=== PATIENT | female | born 1960 | race Caucasian/White ===

== ENCOUNTER → 2016-09-26 | Outpatient (CLI) | payer OTHER ==
[~2016-09-26] MED LIST: ALLEGRA 180MG180 MG PO; ASTELIN NASAL S34 ML; ATARAX 25MG25 MG/TAB PO; BIOFREEZE 0.2%-1 GE1 TOP; CENTRUM SILVER1 CTB PO; CENTRUM SILVER1 TAB; DOS PO; EPIPEN 2-PAK1 MG/ML IM; FLONASE NASAL S16 GM NS; GLUCOPHAGE1000 MG PO; GLUCOSAMINE & C1 CA1 PO; HAIRSKINNAILS PO; KONSYL ORA PO; NEURONTIN300 MG/CAP PO; NIZORAL CREAM15 GM TP; NORCO 325 MG-51 TAB PO; OMEGA-31 SGL PO; PREMARIN 0.60.625 M1 PO; PROTONIX 40MG T40 MG PO; PYRIDIUM 100MG100 MG PO; RT ADVAIR HFA 1112 G IH; SENOKOT8.6 MG PO; VITAMIN D 1001000 IU PO; VITAMIN D32000 I1 PO; WELLBUTRIN XL300 M1 PO; ZANTAC 150150 MG; ZESTRIL 5MG5 MG PO; ZETIA 10MG TAB10 MG PO; ZYRTEC 10MG10 MG PO
== END ==
LOC: COL.PUL 09-21 09:30
DX: R06.02 Shortness of breath (principal)

== ENCOUNTER → 2016-10-11 | Outpatient (CLI) | payer OTHER | LOC: COL.PUL 09:45 | DX: R06.02 Shortness of breath (principal) | CPT/HCPCS: J7674 ==

== ENCOUNTER → 2017-04-09 | Outpatient (CLI) | payer OTHER ==
[~2017-04-09] VITALS: Ht 162.6 cm; Wt 74.5 kg
[2017-04-09 09:46] VITALS: BP 134/85; PULSE 68
== END ==
LOC: COL.RAD 09:25
DX: Z53.9 Procedure and treatment not carried out, unspecified reason (principal)

== ENCOUNTER 2017-11-08 05:11 | Day surgery (SDC) | payer OTHER ==
[~2017-11-08] VITALS: Ht 162.6 cm; Wt 78.3 kg
[2017-11-08 05:40] VITALS: BP 106/68; PULSE 60; TEMP 97.3
[2017-11-08] MEDS ORDERED: CALCIUM CITRATE1 TA7 PO (05:48)
[2017-11-08] MEDS ORDERED: PRAVACHOL 40MG40 MG PO (05:49)
[2017-11-08] MEDS ORDERED: EPIPEN 2-PAK1 MG/ML IM (05:52)
[2017-11-08 08:30] VITALS: BP 108/70; PULSE 61; TEMP 97.6
[2017-11-08 08:44] VITALS: TEMP 97.6
[2017-11-08 08:45] VITALS: BP 108/70; PULSE 74
[2017-11-08] MEDS ORDERED: SENOKOT S 50 MG1 TAB PO (08:52)
[2017-11-08] MEDS ORDERED: NORCO 325 MG-51 TAB PO (08:52)
[2017-11-08] MEDS ORDERED: PYRIDIUM 100MG100 MG PO (08:53)
[2017-11-08 09:00] VITALS: BP 122/72; PULSE 71
== END 2017-11-08 09:15 | disposition home or self-care (01) ==
LOC: SDCO 05:11
DX: C67.2 Malignant neoplasm of lateral wall of bladder (principal); N30.20 Other chronic cystitis without hematuria; E11.9 Type 2 diabetes mellitus without complications; J45.909 Unspecified asthma, uncomplicated; K21.9 Gastro-esophageal reflux disease without esophagitis; F32.9 Major depressive disorder, single episode, unspecified; F41.9 Anxiety disorder, unspecified; Z90.710 Acquired absence of both cervix and uterus; Z91.010 Allergy to peanuts; Z79.51 Long term (current) use of inhaled steroids; Z87.891 Personal history of nicotine dependence; Z80.52 Family history of malignant neoplasm of bladder; Z82.49 Family history of ischemic heart disease and other diseases of the circulatory system
CPT/HCPCS: C1769; J0690; J1100; J1885; J2405; J2704; J3010; J7120; Q9967

== ENCOUNTER 2018-09-23 08:32 | Outpatient (CLI) | payer OTHER ==
--- NOTE | 2018-09-19 11:02 | NUR ---
LEFT MSG ON MACHINE REGARDING THE LUNG BX, MEDS , ALLERGIES AND PMH, WITH RETURN CALL NUMBER
[2018-09-23] VITALS (13 sets, daily range): BP systolic 116–164; BP diastolic 77–95; PULSE 59–67; TEMP 98
[~2018-09-23] VITALS: Ht 162.6 cm; Wt 74.2 kg
[~2018-09-23 08:32] MED LIST changes: +ASPIRIN E.C. 8181 MG PO; +ATARAX50 MG PO; +CALCIUM CITRATE1 TA7 PO; +CRESTOR20 MG PO; +DESYREL 100MG100 MG PO; +FLONASEALLERGY NS; +LOPRESSOR 225 MG/TAB PO; +NITROSTAT0.4 MG/TAB SL; +PLAVIX 75MG TAB75 MG PO; +PRAVACHOL 40MG40 MG PO; +PRILOSEC 20MG20 MG PO; +PROVENTIL0.09 MG/A1 IH; +SENOKOT S 50 MG1 TAB PO; +WELLBUTRIN SR100 M1 PO; +WELLBUTRIN SR150 M1 PO
[2018-09-23] MEDS ORDERED: RT ADVAIR HFA 412 GM IH (09:01)
--- NOTE | 2018-09-23 09:45 | NUR ---
versed 0.5mg iv given, pt stated earlier was very anxious due to procedure. Dr Mohan starting procedure after timeout
--- NOTE | 2018-09-23 10:00 | NUR ---
speciman obtained and placed in formulin, pt has bandaid on right upper back, clean and dry. transferred over to cart and taken to EU 10
--- NOTE | 2018-09-23 10:15 | NUR ---
Pt to [facility] 10 per cart s/p lung bx. Pt resting well, family at bedside.
--- NOTE | 2018-09-23 12:50 | NUR ---
Pt has ambulated, voided and gertrudis PO intake s n/v. PIV removed from L W with catheter intact.
--- NOTE | 2018-09-23 13:05 | NUR ---
Pt discharged per w/c by nurse with .
== END 2018-09-23 14:11 | disposition home or self-care (01) ==
LOC: COL.RAD 08:32
DX: R91.8 Other nonspecific abnormal finding of lung field (principal); Z98.1 Arthrodesis status
CPT/HCPCS: J2250